=== PATIENT | male | born 1965 | race Caucasian/White ===

== ENCOUNTER 2016-12-02 21:45 | Emergency (ER) | payer MEDICAID ==
[~2016-12-02] VITALS: Ht 157.5 cm; Wt 68.0 kg
--- NOTE | 2016-12-02 22:03 | NUR ---
PT BIB FAMILY VIA W/C TO ER BED 7 C/O LLQ ABD PAIN, SEEN AT [place] X2 DAYS AGO FOR HERNIA, RECENT SPINAL STENOSIS LUMBAR SX X8DAYS AGO, NO N/V/D, TOOK [facility] 10 X1200. PT AOX3 RR EVEN AND UNLABORED. NO SOB NOTED. NAD NOTED. NO NVD AT THIS TIME. PT GOWNED AND PLACED ON MONITOR.
--- NOTE | 2016-12-02 22:10 | NUR ---
DR. CHAUHAN AT BEDSIDE FOR EVAL.
--- NOTE | 2016-12-02 22:26 | NUR ---
Patient does not wish to proceed with medical care recommended by Dr. CHAUHAN. Patient given information related to possible complications, up to and including , which could occur as a result of leaving the hospital at this time. Patient verbalizes understanding of risks involved due to leaving against medical advice. Patient has signed AMA form.
[2016-12-02 22:30] VITALS: BP 132/74
== END 2016-12-02 22:31 | disposition home or self-care (01) ==
LOC: ER 21:48
DX: R10.32 Left lower quadrant pain (principal); G83.9 Paralytic syndrome, unspecified; M48.06 Spinal stenosis, lumbar region; Z53.20 Procedure and treatment not carried out because of patient's decision for unspecified reasons; Z98.890 Other specified postprocedural states
CPT/HCPCS: 99281; A4606; Z7610; Z7502